=== PATIENT | female | born 1980 | race American Indian/Alaskan Native ===

== ENCOUNTER 2018-12-28 22:05 | Emergency (ER) | payer MEDICAID, OTHER ==
[2018-12-28 22:05] VITALS: BMI 38.5
[2018-12-28 22:12] VITALS: TEMP 98.2
--- NOTE | 2018-12-28 23:22 | C.PDOC ---
History Of Present Illness 38 year old female with Hx of gastritis after dinner after felt a lot of gas and needed to burp, began feeling weak because she was unable to burp. Denies chest pain or SOB. Patient did have a headache for which she took excedrin which worked but she states that since arriving here the headache began to come back. While here she has managed to burp a few times and is feeling much better. Time Seen by Provider: 12/28/18 22:38 Chief Complaint (Nursing): Abdominal Pain History Per: Patient History/Exam Limitations: no limitations Onset/Duration Of Symptoms: Hrs Current Symptoms Are (Timing): Better Quality Of Discomfort: Gas Associated Symptoms: Other ((+) Headache, feeling weak. (-) Chest pain, SOB.) Exacerbating Factors: None Alleviating Factors: Other (Burping) Recent travel outside of the [place]: No Abnormal Vaginal Bleeding: No Past Medical History Reviewed: Historical Data, Nursing Documentation, Vital Signs Vital Signs: Last Vital Signs Temp 98.2 F 12/28/18 22:08 Pulse 93 H 12/28/18 22:08 Resp 18 12/28/18 22:08 BP 138/89 12/28/18 22:08 Pulse Ox 100 12/28/18 22:08 - Medical History PMH: Gastritis Family History: States: No Known Family Hx - Social History Hx Alcohol Use: Yes Hx Substance Use: No Review Of Systems Constitutional: Positive for: Weakness. Negative for: Fever, Chills ENT: Negative for: Nose Discharge, Nose Congestion Cardiovascular: Negative for: Chest Pain Respiratory: Negative for: Shortness of Breath Gastrointestinal: Negative for: Nausea, Vomiting Genitourinary: Negative for: Dysuria, Hematuria Musculoskeletal: Negative for: Back Pain Neurological: Positive for: Headache Physical Exam - Physical Exam Appears: Non-toxic Skin: Normal Color, Warm, Dry Head: Atraumatic, Normacephalic Eye(s): bilateral: Normal Inspection Oral Mucosa: Moist Neck: Normal, Supple Chest: Symmetrical, No Tenderness Cardiovascular: Rhythm Regular Respiratory: Normal Breath Sounds, No Rales, No Rhonchi, No Wheezing Gastrointestinal/Abdominal: Soft, No Tenderness Back: No CVA Tenderness Neurological/Psych: Oriented x3, Normal Speech ED Course And Treatment O2 Sat by Pulse Oximetry: 100 (room air) Pulse Ox Interpretation: Normal Medical Decision Making Medical Decision Making: Plan: * Pepcid * Motrin Patient given medications, on re-eval appeared comfortable in no distress. Will write Rx for pepcid. Advised outpatient followup for gastritis. Disposition - Disposition Disposition: HOME/ ROUTINE Disposition Time: 23:47 Condition: GOOD Prescriptions: Famotidine [Pepcid] 40 mg PO DAILY #14 tablet Instructions: Headache, Adult, Gastritis (DC) Forms: [employer] (Kinyarwanda) - Clinical Impression Clinical Impression: Headache, Gastritis - Scribe Statement The provider has reviewed the documentation as recorded by the Scriblam Mendoza All medical record entries made by the Marandaibe were at my direction and personally dictated by me. I have reviewed the chart and agree that the record accurately reflects my personal performance of the history, physical exam, medical decision making, and the department course for this patient. I have also personally directed, reviewed, and agree with the discharge instructions and disposition.
[2018-12-29 00:27] VITALS: BP 120/80; PULSE 80; RESP 14; O2SAT 99
== END 2018-12-29 00:26 | disposition home or self-care (01) ==
LOC: C.ER 22:05
DX: R51 Headache (principal); K29.70 Gastritis, unspecified, without bleeding